=== PATIENT | female | born 2005 | race Caucasian/White ===

== ENCOUNTER 2023-06-05 10:07 | Emergency (ER) | payer OTHER ==
[~2023-06-05] VITALS: Ht 7.6 cm; Wt 56.8 kg
[2023-06-05 10:13] VITALS: TEMP 98.1
[2023-06-05] MEDS ORDERED: Acetaminophen 500 MG TAB PO ONE (10:45)
[2023-06-05 12:53] VITALS: BP 110/78; PULSE 76
== END 2023-06-05 12:53 | disposition home or self-care (01) ==
LOC: COL.ER 10:07
DX: S09.90XA Unspecified injury of head, initial encounter (principal); R55 Syncope and collapse; W18.30XA Fall on same level, unspecified, initial encounter; W22.8XXA Striking against or struck by other objects, initial encounter